=== PATIENT | male | born 1945 | race Caucasian/White ===

== ENCOUNTER 2017-01-31 08:34 | Emergency (ER) | payer OTHER ==
[~2017-01-31] VITALS: Ht 172.7 cm; Wt 99.8 kg
--- NOTE | ~2017-01-31 | CT71 ---
[facility] A Service of [facility] RADIOLOGY TEXT RESULTS PATIENT: YANDY JACINTO JR LOCATION: [facility] : 43 UNIT #: [id number] AGE: [address]: Nicolás Peres MD SEX: M ORDER DR: [id number] [facility] [address] [place], [place] [address] [id number] E MR#: [id number] Acc #: [id number] NAME: YANDY JACINTO JR : 1945 SEX: M STUDY DATE/TIME: 01/31/2017 10:20 UNIT: [facility] ROOM: STUDY DESCRIPTION: CT Head Wo Contrast Attending Physician: Nicolás Peres M.D. Ordering Physician: Nicolás Peres M.D. Primary Care Physician: Jackelyn Spear A.P.R.N. MEDICAL IMAGING REPORT This report is preliminary unless electronic signature is present EXAM Head CT without contrast HISTORY Frontal headache since 01/27/2017. Patient fell out of bed at home this morning. Head injury. TECHNIQUE Axial imaging was obtained without contrast. This CT examination was performed with one or more of the following radiation dose reduction techniques: automatic exposure control, adjustment of mA and/or kV according to patient size, and iterative reconstruction. FINDINGS Generalized atrophy is noted. There is no evidence of mass lesion, hemorrhage or edema. No midline shift is noted. Extraaxial structures are unremarkable. IMPRESSION Atrophy. No acute findings. Dictated by... Maco Doyle M.D. THIS IS AN ELECTRONICALLY VERIFIED REPORT Maco Doyle M.D. at 01/31/2017 4:35 PM RLF/cedric TD: 01/31/2017 13:40 JOB #: [id number] MEDICAL IMAGING REPORT [facility] A Service [facility] RADIOLOGY TEXT RESULTS PATIENT: YANDY JACINTO JR LOCATION: [facility] : 44 UNIT #: [id number] AGE: [address]: Nicolás Peres MD SEX: M ORDER DR: Page 1 of 1 COPY
--- NOTE | ~2017-01-31 | EKG ---
PATIENT: YANDY JACINTO UNIT #: [id number] Ventricular Rate: 59 BPM Atrial Rate: 59 BPM P-R Interval: 158 ms QRS Duration: 136 ms Q-T Interval: 458 ms QTC Calculation(Bezet): 453 ms P [place]: 29 degrees Calculated R [place]: -54 degrees Calculated T [place]: -19 degrees Diagnosis Line: Sinus bradycardia with Premature atrial complexes Diagnosis Line: Right bundle branch block Diagnosis Line: Left anterior fascicular block Diagnosis Line: Bifascicular block Diagnosis Line: Abnormal ECG Diagnosis Line: When compared with ECG of 04-MAR-2016 06:34, Diagnosis Line: Premature atrial complexes are now Present Diagnosis Line: Questionable change in QRS duration Diagnosis Line: Confirmed by JOAN WOLF MD ([id number]) on Diagnosis Line: 01/31/2017 3:31:03 PM INTERPRETING MD: GURU
--- NOTE | ~2017-01-31 | CR72 ---
[facility] A Service of [facility] RADIOLOGY TEXT RESULTS PATIENT: YANDY JACINTO JR LOCATION: [facility] : 44 UNIT #: [id number] AGE: [address]: Nicolás Peres MD SEX: M ORDER DR: [id number] [facility] [address] [place], [place] [address] [id number] E MR#: [id number] Acc #: [id number] NAME: YANDY JACINTO JR : 1945 SEX: M STUDY DATE/TIME: 01/31/2017 9:27 UNIT: [facility] ROOM: STUDY DESCRIPTION: CR Chest Single View Portable Attending Physician: Nicolás Peres M.D. Ordering Physician: Nicolás Peres M.D. Primary Care Physician: Jackelyn Spear A.P.R.N. MEDICAL IMAGING REPORT This report is preliminary unless electronic signature is present EXAM AP portable chest dated 01/31/2017 HISTORY Shortness breath this morning. Fell out of bed. Diabetes. History of ruptured esophagus. COMPARISON AP portable chest 05/09/2016. FINDINGS Low volume inspiration. Stable borderline cardiac size. Right midlung and left [id number] lung zone infiltrates are present. No pneumothorax or pneumomediastinum is seen. No definite pleural effusion. Atherosclerotic calcifications of the aortic knob. IMPRESSION 1. Right midlung and peripheral left [id number] lung zone infiltrates. Correlate clinically for pneumonia. Dictated by... Luba Arnett M.D. THIS IS AN ELECTRONICALLY VERIFIED REPORT Luba Arnett M.D. at 02/01/2017 8:43 AM [facility]/nathan TD: 01/31/2017 12:52 JOB #: [id number] MEDICAL IMAGING REPORT Page 1 of 1 COPY
[~2017-01-31 08:34] MED LIST: ACTOS PO; ALBUTEROL17 GM INH; ALLERGY RELIEF25 MG PO; AMIODARONE HCL100 MG PO; ASPIRIN EC81 M1 PO; ATORVASTATIN CA40 MG PO; CARDIZEM CD180 M1 PO; CENTRUM PO; CITALOPRAM; CITALOPRAM HBR40 M1 PO; COUMADIN1 MG PO; DESYREL50 MG PO; FLONASE16 GM; LANTUS100 U/ML; LASIX20 MG PO; LISINOPRIL-HCTZ1 T14 PO; LISINOPRIL/HCTZ; LOVENOX100 MG/ML INJ; METFORMIN HCL1000 M1 PO; NOVOLOG100 U/M2 IM; OMEPRAZOLE40 M1 PO; RANITIDINE HCL150 M1 PO; TEMAZEPAM30 MG PO; TOUJEO SOL300 UNIT/1 IM; ZANTAC PO; ZOCOR PO; ZYRTEC PO; [UNRECOGNIZED DRUG - OTHER]
[2017-01-31 09:27] LABS: EOSINOPHIL# 0.2 X10e3 (0-0.7); EOSINOPHIL% 2.5 % (0.0-7.0); HEMATOCRIT 36.3 % (38.0-50.0); LYMPHOCYTE# 2.2 X10e3 (1.0-3.5); LYMPHOCYTE% 24.4 % (17.0-45.0); MEAN CELL VOLUME 79.1 FL (83-96); MEAN CORPUSCULAR HEMOGLOBIN 26.1 PG (28-34); MEAN PLATELET VOLUME 8.2 FL (6.5-11.5); MONOCYTE# 0.7 X10e3 (0-1.0); MONOCYTE% 7.9 % (3.0-12.0); NEUTROPHIL# 5.8 X10e3 (1.5-7.1); NEUTROPHIL% 65.2 % (40-75); PLATELET COUNT 160 X10e3 (140-420); RED BLOOD COUNT 4.59 X10e (3.90-5.60); WHITE BLOOD COUNT 8.8 X10e3 (4.0-10.5)
[2017-01-31 09:29] LABS: DIFF IND NO
[2017-01-31 09:41] LABS: INR 2.5
[2017-01-31 09:47] LABS: PROTHROMBIN TIME (PATIENT) 27.1 SECONDS (10.0-11.7)
[2017-01-31 09:51] LABS: POC - TROPONIN <0.05 ng/mL (<=0.05)
[2017-01-31 10:07] LABS: ALBUMIN SERUM 3.7 g/dL (3.5-5.0); BILIRUBIN, DIRECT 0.1 mg/dL (0.0-0.2); BILIRUBIN,INDIRECT 0.7 mg/dL (0.0-0.9); BILIRUBIN,TOTAL 0.8 mg/dL (0.2-2.0); CALCIUM SERUM 8.9 mg/dL (8.4-10.2); GLOM FILT RATE Estimated 74.9 mL/min (>60); POTASSIUM 3.7 mmol/L (3.5-5.1); PROTEIN TOTAL SERUM 7.3 g/dL (6.0-8.3)
[2017-02-01 12:03] LABS: POC - TROPONIN <0.05 ng/mL (<=0.05)
== END 2017-01-31 13:05 | disposition home or self-care (01) ==
LOC: CED 08:34
PROVIDERS: Emergency Medicine
DX: J18.1 Lobar pneumonia, unspecified organism (principal); W06.XXXA Fall from bed, initial encounter; E11.9 Type 2 diabetes mellitus without complications; I10 Essential (primary) hypertension; Z88.8 Allergy status to other drugs, medicaments and biological substances; I48.91 Unspecified atrial fibrillation; Y92.9 Unspecified place or not applicable
CPT/HCPCS: 36415; 70450; 71010; 80048; 80076; 82553; 83880; 84484; 85025; 85610; 87040; 93005; 96365; 96367; 99285; J0456; J0696